=== PATIENT | male | born 1970 | race Caucasian/White ===

== ENCOUNTER → 2019-12-11 12:11 | Outpatient (CLI) | payer OTHER, SELFPAY ==
--- NOTE | 2019-12-11 12:16 | CA_ITS ---
APPROVED REPORT EXAM: Comprehensive 2D, Doppler, and color-flow Echocardiogram Grounding Engineer: Amparo Basurto RVT Ht: 5 ft 11 in Wt: 241lbs BSA: 2.28 BP: 131/89 mmHg Indications: Diabetes, Obesity, Hyperlipidemia,DAVID 2D Dimensions LVOT 2.31 cm (M/F) 1.5-2.5 M-Mode Dimensions RVDd 3.22 cm (0.9-2.6) LVDd 5.33 cm (3.5-5.7) LVDs 3.76 cm (3.5-5.7) IVSd 0.36 cm (0.6-1.1) PWd 1.11 cm (0.6-1.1) EF (Teich) 55.90% FS 29.50% EDV (Teich) 137.10 mL ESV (Teich) 60.40 mL LV Diastology E/A Ratio 0.67 Mitral Valve MV A Velocity 65.00 (40-130 cm/s) Left Ventricle Left atrium is mildly enlarged, left ventricle is normal size, there is no concentric left ventricular hypertrophy, visually estimated ejection fraction 55% with no regional wall motion abnormality, grade 1 diastolic dysfunction seen without tissue Doppler evidence of raise left atrial pressure. Right Ventricle Right atrium and right ventricular mildly enlarged with normal contractility. Aortic Valve Aortic valve is grossly normal, there is no aortic stenosis aortic insufficiency. Mitral Valve Mitral valve is grossly normal, there is mild mitral regurgitation. Tricuspid Valve Tricuspid valve is grossly normal, there is mild tricuspid regurgitation. Tricuspid regurgitation jet velocity is inadequate for calculation of the right ventricular systolic pressure. Pulmonic Valve Pulmonic valve is poorly visualized. Great Vessels Aortic root is normal size. Pericardium No significant pericardial effusion noted. Conclusion 1. Mild biatrial enlargement, normal left ventricular size, visually estimated ejection fraction 55% with no regional wall motion abnormality, grade 1 diastolic dysfunction seen without tissue Doppler evidence of raise left atrial pressure. 2. Mildly enlarged right ventricle with normal contractility. 3. Mild mitral and tricuspid regurgitation. 4. No significant pericardial effusion noted. Electronically signed by : Owen Marrufo, 03/31/2020 09:21:27
== END ==
PROVIDERS: Visit Provider Nurse Practitioner Family
DX: R06.02 Shortness of breath (principal); E78.2 Mixed hyperlipidemia; Z82.49 Family history of ischemic heart disease and other diseases of the circulatory system
CPT/HCPCS: 36415; 83036; 93306

== ENCOUNTER → 2019-12-11 12:18 | Outpatient (CLI) | payer OTHER, SELFPAY ==
--- NOTE | 2019-12-11 12:30 | CT_ITS ---
PROCEDURE: CT HEART W CALCIUM SCORE CLINICAL HISTORY: sob COMPARISON: No exams were available for comparison TECHNIQUE: Axial images obtained with sagittal and coronal reformats. All CT scans at the facility use one or more dose reduction, viz: automated exposure control, ma/kV adjustment per patient size (including targeted exams where dose is matched to indication, i.e. head), or iterative reconstruction technique. FINDINGS: The coronary artery calcium score is 18 indicating mild calcific plaque burden with moderate cardiovascular disease risk. Incidental findings include splenomegaly at 18 cm and evidence of old granulomatous disease. IMPRESSION: 1. Moderate cardiovascular disease risk with the coronary artery calcium score of 18 2. Splenomegaly Dictated by: Orlando Hamilton MD 12/12/2019 04:38 Electronically signed by Orlando Hamilton MD in [facility] 12/12/2019 04:38
[2019-12-11 13:59] LABS: Hemoglobin A1C 11.4 % (0.0-7.0)
== END ==
PROVIDERS: Nurse Practitioner Family; Visit Provider Internal Medicine
DX: E78.2 Mixed hyperlipidemia (principal); R06.02 Shortness of breath; Z82.49 Family history of ischemic heart disease and other diseases of the circulatory system
CPT/HCPCS: 36415; 75571; 83036

== ENCOUNTER → 2020-01-01 07:17 | Outpatient (CLI) | payer OTHER, SELFPAY ==
--- NOTE | 2020-01-01 | CA_ITS ---
APPROVED REPORT Exam: Exercise Treadmill Technologist: Lorene Cardona Ht: 5 ft 11 in Wt: 240 lbs BSA: 2.28 m2 HR: 61 bpm BP: 127/78 mmHg Indications: HYPERLIPIDEMIA Medical History Medications: Aspirin,,,,, Metformin,,,,, Ramipril,,,,, FeNOfibrate,,,,, BisOPROLOL,,,,, CetIRIZINE,,,,, RoSUVASTATIN,,,,, Stress Test Details Test: Carlos HR Resting HR: 65 bpm Max Heart Rate (APMHR): 169 bpm Max HR Achieved: 146 bpm Target HR (85% APMHR): 143 bpm % of APMHR: 86 Recovery HR: 92 bpm BP Resting BP: 127.0/78.0 mmHg Max BP: 160.0/75.0 mmHg Recovery BP: 135.0/70.0 mmHg ECG Clinical Exercise duration: 08:15 min Highest Stage Achieved: Exercise capacity: 10.1 METs Stress ECG Conclusion Patient exercised 8:15 on Carlos Protocol. Symptoms: No chest pain. Arrhythmias/Ectopy: None ST-T Changes: Within normal ST response to exercise. Conclusion: Normal GXT. Myoview images reported separately. Test Summary REST . . . . . . . Sitting REST . . . . . . . Standing REST 02:36 0.0 0.0 65 . 127/ 78 . . Stage 1 01:00 10.0 1.7 93 . . . . Stage 1 02:00 10.0 1.7 102 . . . . Stage 1 03:00 10.0 1.7 106 . 126/ 80 . . Stage 2 01:00 12.0 2.5 115 . . . . Stage 2 02:00 12.0 2.5 120 . . . . Stage 2 03:00 12.0 2.5 128 . 160/ 75 . . Stage 3 . . . . . . . Myoview Injected Stage 3 01:00 14.0 3.4 135 . . . . Stage 3 02:00 14.0 3.4 142 . . . . Stage 3 02:15 14.0 3.4 145 . . . Stop exercise at 08:15 RECOVERY 01:00 0.0 0.0 120 . . . . RECOVERY 02:00 0.0 0.0 100 . 152/ 70 . . RECOVERY 03:00 0.0 0.0 96 . 149/ 74 . . RECOVERY 04:00 0.0 0.0 91 . 149/ 74 . . RECOVERY 05:00 0.0 0.0 92 . 135/ 70 . . RECOVERY 05:19 0.0 0.0 88 . 135/ 70 . . Electronically signed by : Owen Marrufo, 01/02/2020 14:54:04
--- NOTE | 2020-01-01 07:25 | NM_ITS ---
APPROVED REPORT Exam: Nuclear Stress Test Indication: hyperlipidemia, d.m., fm. gaming, Patient Location: Outpatient Stress Tech: Lorenehelga Cardona NE Tech:Leida Clancy, ARRT, RT (R)(N) Ht: 5 ft 11 in Wt: 240 lbs HR: 61 bpm BP: 127/78 mmHg BSA: 2.28 m2 BMI: 33.4 History: hyperlipidemia, d.m., fm. [place]., Procedure: Patient exercised on Carlos protocol 8;15 minutes and sec, resting heart rate 61 bpm, resting blood pressure 127/78 mmHg, with exercise maximum heart rate achived was 146 bpm which is Greater than 85 % of the maximum predicted heart rate and blood pressure was 160/75 mmHg. Patient denied any complaint of chest pain. Patient has Good exercise capacity, achieved 10.1 METs of workload on treadmill, the blood pressure response to exercise was Adequate. Electrocardiogram Resting electrocardiogram shows sinus rhythm, with exercise there is less than 1.[address] segment depression noted from the baseline EKG. The EKG portion of the exercise Myoview is negative for ischemia. Cardiac Stress and Resting SPECT Images: Cardiac Stress and Resting SPECT images were obtained using technetium 99m Myoview 31.0 mCi stress and 9.98 mCi at rest. Gated SPECT with analysis of segmental wall motion and calculation of the ejection fraction also done. Cardiac stress and resting SPECT images show uniform myocardial activity without segmental perfusion abnormality, computer derived ejection fraction is 57% with no regional wall motion abnormality, right ventricle is normal size and contractility. Conclusion: 1. The EKG portion of the exercise Myoview is negative for ischemia , patient has good exercise capacity achieved 10.1 mets of workload on treadmill, the blood pressure response to exercise was adequate, there was no exercise-induced chest discomfort. 2. No scintigraphic evidence of reversible ischemia seen, computer derived ejection fraction 57% with no regional wall motion abnormality, right ventricle is normal size and contractility. 3. Normal exercise Myoview study. Electronically signed by : Owen Marrufo, 01/02/2020 14:56:30
--- NOTE | 2020-01-01 11:13 | HMH.ITSHM ---
Current Home Medications as stated by this patient Ilan Conn or customer assistance representative. []
--- NOTE | 2020-01-01 11:13 | HMH.ITSHM ---
Current Home Medications as stated by this patient Ilan Conn or entry level marketing representative. []rosvastatn ramipril metformin fenofibrate cetirizine bisoprolol aspirin
== END ==
PROVIDERS: Visit Provider Internal Medicine
DX: R73.9 Hyperglycemia, unspecified (principal); Z82.49 Family history of ischemic heart disease and other diseases of the circulatory system
CPT/HCPCS: 78452; 93017; A9502

== ENCOUNTER → 2020-07-01 12:47 | Outpatient (CLI) | payer OTHER, SELFPAY ==
[2020-07-01 14:17] LABS: Alanine Aminotransferase 33 U/L (12-78); Albumin Level 4.6 g/dl (3.5-5.0); Alkaline Phosphatase 36 U/L (38-126); Aspartate Amino Transferase 39 U/L (17-59); Bilirubin,Direct 0.2 mg/dl (0.0-0.4); Bilirubin,Indirect 0.3 mg/dL (0.0-0.9); Bilirubin,Total 0.5 mg/dl (0.2-1.3); Bilirubin,Unconjugated 0.3 mg/dL (0.0-1.1); Chol/HDL Ratio 3.7 (1-3.5); Cholesterol 148 mg/dl (140-200); HDL Cholesterol 40 mg/dl (40-60); Total Protein,Serum 7.2 g/dl (6.3-8.2); Triglycerides 244 mg/dl (30-150); VLDL Cholesterol 49 mg/dL (0-40)
[2020-07-01 14:28] LABS: Direct LDL Cholesterol 74.62 mg/dL (100-129)
== END ==
PROVIDERS: Visit Provider Internal Medicine
DX: E11.9 Type 2 diabetes mellitus without complications (principal); E66.09 Other obesity due to excess calories; E78.2 Mixed hyperlipidemia; I25.10 Atherosclerotic heart disease of native coronary artery without angina pectoris; Z79.84 Long term (current) use of oral hypoglycemic drugs
CPT/HCPCS: 36415; 80061; 80076

== ENCOUNTER → 2021-07-13 12:48 | Outpatient (CLI) | payer OTHER, SELFPAY ==
[2021-07-13 14:09] LABS: Coronavirus 19 IgG Antibody Negative (Negative); Coronavirus 19 IgM Antibody Negative (Negative)
== END ==
PROVIDERS: Visit Provider Physician Assistant
DX: Z11.52 Encounter for screening for COVID-19 (principal)
CPT/HCPCS: 86328

== ENCOUNTER 2024-02-07 12:20 | Outpatient (CLI) | payer OTHER, SELFPAY ==
[2024-02-07 12:26] LABS: Microscopic, Urine URINE MICROSCOPIC (MICROSCOPIC)
[2024-02-07 12:47] LABS: Basophils # 0.1 K/mm3 (0-0.2); Eosinophils # 0.2 K/mm3 (0.0-0.4); Eosinophils % 3.6 % (0.1-12.0); Hematocrit 45.5 % (42.0-52.0); Hemoglobin 15.1 g/dL (14.1-18.0); Lymphocytes # 1.8 K/mm3 (0.7-4.5); Lymphocytes % 34.7 % (10-50); Mean Corpuscular HGB Conc 33.2 g/dL (31.8-35.4); Mean Corpuscular Hemoglobin 29.1 pg (27.0-31.2); Mean Corpuscular Volume 87.6 fl (80-94); Mean Platelet Volume 8.8 fl (7.4-10.4); Monocytes # 0.3 K/mm3 (0.1-1.0); Monocytes % 6.1 % (1.7-9.3); Neutrophils # 2.9 K/mm3 (1.8-7.8); Neutrophils % 54.6 % (37.0-80.0); Platelet Count 195 K/mm3 (142-424); Red Cell Distribution Width 14.2 % (11.5-17.5); White Blood Count 5.3 K/mm3 (4.8-10.8)
[2024-02-07 13:13] LABS: Chloride 105 mmol/L (98-107)
[2024-02-07 13:14] LABS: Potassium 4.9 mmoL/L (3.5-5.1); Sodium 139 mmol/L (136-145)
[2024-02-07 13:16] LABS: Alanine Aminotransferase 37 U/L (12-78); Albumin Level 4.4 g/dl (3.5-5.0); Alkaline Phosphatase 43 U/L (38-126); Anion Gap 8.9 mEq/L (5-15); Aspartate Amino Transferase 37 U/L (17-59); Bilirubin,Direct 0.2 mg/dl (0.0-0.4); Bilirubin,Indirect 0.3 mg/dL (0.0-0.9); Bilirubin,Total 0.5 mg/dl (0.2-1.3); Bilirubin,Unconjugated 0.3 mg/dL (0.0-1.1); Blood Urea Nitrogen 13 mg/dl (9-20); Calcium 9.6 mg/dl (8.4-10.2); Carbon Dioxide 30 mmol/L (22.0-30.0); Cholesterol 167 mg/dl (140-200); Estimated Glomerular Filt Rate 69 ml/min (>60); GFR (African American) 84 ML/MIN (>60); Glucose 116 mg/dl (74-100); Total Protein,Serum 6.7 g/dl (6.3-8.2); Triglycerides 365 mg/dl (30-150); VLDL Cholesterol 73 mg/dL (0-40)
[2024-02-07 13:17] LABS: HDL Cholesterol 28 mg/dl (40-60)
[2024-02-07 13:18] LABS: Appearance,Urine CLEAR (Clear); Bilirubin,Urine Negative (Negative); Blood, Urine Negative (Negative); Color,Urine YELLOW (Yellow); Glucose,Urine (UA) 3+ (Negative); Ketones,Urine Negative (Negative); Leukocyte Esterase,Urine Negative (Negative); Nitrate,Urine Negative (Negative); Protein,Urine Negative (Negative); Urobilinogen,Urine 0.2 EU/dl (0.2)
[2024-02-07 13:24] LABS: 25-OH Vitamin D, Total 28.2 ng/mL (30-100)
[2024-02-07 13:28] LABS: Direct LDL Cholesterol 56.91 mg/dL (100-129)
[2024-02-07 13:33] LABS: Free T4 (Free Thyroxine) 1.07 ng/dl (0.78-2.19)
[2024-02-07 13:48] LABS: Prostate Specific Ag Screen 1.4 ng/ml (0.0-4.0)
[2024-02-07 13:49] LABS: Thyroid Stimulating Hormone 1.87 uIU/mL (0.465-4.68)
[2024-02-07 14:26] LABS: Bacteria,Urine Trace /lpf; WBC,Urine Occasional #/hpf (0-3)
== END 2024-02-07 23:59 ==
PROVIDERS: Visit Provider Internal Medicine
DX: R06.00 Dyspnea, unspecified (principal); I25.10 Atherosclerotic heart disease of native coronary artery without angina pectoris; I11.9 Hypertensive heart disease without heart failure; K21.9 Gastro-esophageal reflux disease without esophagitis; E11.9 Type 2 diabetes mellitus without complications; G47.33 Obstructive sleep apnea (adult) (pediatric); E78.2 Mixed hyperlipidemia; E66.09 Other obesity due to excess calories; Z68.36 Body mass index [BMI] 36.0-36.9, adult; Z12.5 Encounter for screening for malignant neoplasm of prostate; E55.9 Vitamin D deficiency, unspecified
CPT/HCPCS: 36415; 80048; 80061; 80076; 81001; 82306; 84439; 84443; 85025; G0103